=== PATIENT | male | born 1980 | race Asian ===

== ENCOUNTER 2019-01-21 14:39 | Emergency (ER) | payer OTHER, SELFPAY ==
[2019-01-21 14:45] VITALS: BP 142/93; PULSE 64; RESP 16; TEMP 36.6; O2SAT 100
--- NOTE | 2019-01-21 14:45 | DI.CT_ITS ---
SYMPTOM/DIAGNOSIS: RT SIDED ABD PAIN CT ABDOMEN AND PELVIS: CT scan of the abdomen and pelvis was performed following the uneventful administration of intravenous contrast material. No acute findings are seen in the lung bases. The liver is normal in size. There are several tiny hypodense lesions in the liver. They are too small for further characterization but likely reflect small cysts. No suspicious hepatic lesion is seen. The portal, superior mesenteric and portal veins are patent. The gallbladder is negative. There is no biliary ductal dilatation. The pancreas is unremarkable as are the spleen and adrenal glands. There are bilateral striated nephrograms. No renal mass is present. No obstructive uropathy is appreciated. The urinary bladder is intact. The reproductive organs are unremarkable. The aorta is of normal caliber. No significant abdominal or pelvic adenopathy, ascites or pneumoperitoneum is seen. The bowel shows no evidence of obstruction or inflammation. No findings to suggest an acute appendicitis are present. No acute osseous abnormality is identified. IMPRESSION: Bilateral striated nephrograms. Primary diagnostic concern is pyelonephritis. Other considerations include lymphoma, vasculitis or infarction. Please correlate clinically. Results were discussed with Charu De Leon of the Emergency Department on 01/23/19
--- NOTE | 2019-01-21 14:47 | ED.GENADUL_ITS ---
Discharge Plan Disposition Patient Disposition: HOME Condition: Stable Discharge Details Chief Complaint: Abd Prob Clinical Impression: Pancreatitis Primary Care Provider: Ad Escobar ED Provider: Jovanni Murray Home Meds and New Rx's Prescriptions: New ondansetron 4 mg tablet,disintegrating 4 mg PO Q8H PRN (Reason: nausea and vomiting) Qty: 20 RF: 0 No Action atorvastatin 10 mg Tablet RF: 0 Discharge Instructions Instructions: Pancreatitis (ED) Additional Instructions: your labs showed your lipase level was elevated consistent with pancreatitis. Your cat scan of your abdomen did not show any concerning findings you can take 1000mg tylenol and 600mg ibuprofen every 6 hours for pain as needed if you have severe worsening of pain or persistent vomit return to the emergency department Medical Decision Making 38 yo male who denies any chronic medical problems, has had a prior appendectomy, comes in with worsening right sided abdominal pain. Denies vomit, fevers, chills, chest pain, sob. He localizes the pain to the right side of his abdomen and does have ruq pain with guarding and positive deluna's sign on my exam. Will obtain labs and imaging to further evaluate for potential causes such as pancreatitis, cholecystitis and sbo among other pathology pt's pain resolved with one dose of toradol. His labs show lipase of over 1000 otherwise no significant findings. Awaiting CT CT shows no significant findings. He has absolutely no pain even on palpation and is tolerating PO now. He feels comfortable with d/c given he is tolerating PO and pain is well controlled with just toradol and he doesn't want any strong pain prescriptions. Will d/c and have him f/u with his pcp this week, return if worsening Differential Diagnosis cholecystitis, pancreatitis, sbo Imaging Data Radiologic Study: Attestation: I personally reviewed and interpreted this imaging study as follows: Imaging: CT Scan Radiologist's impression: no acute findings Lab Data Lab results reviewed: Yes I reviewed the patient's lab results. HPI General Mode of arrival: ambulatory . Date/Time Provider Initiated Documentation: 01/21/19 14:39 . Limitations to Documentation: no limitations . Information obtained by: patient . History of Present Illness 38 year old M presents to the emergency department with the chief complaint of abdominal pain, described as severe, Quality is described as stabbing, and is localized to the abdomen. Patient reports no radiation. Patient started experiencing this day(s) (3) and it has been constant. No relieving factors improve symptom(s), No exacerbating factors reported . Patient did receive the following treatments prior to arrival, none Related Data Home Medications Medication Instructions Recorded Confirmed atorvastatin 01/21/19 ondansetron 4 mg PO Q8H PRN #20 tab 01/21/19 Previous Rx's Medication Instructions Recorded ondansetron 4 mg PO Q8H PRN #20 tab 01/21/19 Allergies Allergy/AdvReac Type Severity Reaction Status Date / Time mold Allergy Intermediate Verified 03/22/18 13:05 lactose Allergy Unverified 01/21/19 14:49 pollen extracts Allergy Verified 03/22/18 13:05 Review of Systems Review of Systems All systems reviewed & are unremarkable except as noted in HPI and below Constitutional Denies chills and Denies fever(s) Cardiovascular Denies chest pain and Denies dyspnea Respiratory Denies cough and Denies dyspnea Gastrointestinal Denies vomiting Integumentary/Breasts Denies rash PFSH Social History Smoking/Tobacco Use Status: Never Alcohol Intake: current Alcohol Intake frequency: a few times a month Drug use: Never Substance use type: does not use Exam Const General: no acute distress Orientation: alert HENMT Head: normal to inspection Ears: external ears normal General nose exam: external nose normal Mouth: moist mucous membranes Eyes General: appearance normal, both eyes and all related structures Neck Neck: normal visual inspection Resp Effort & Inspection: normal respiratory effort and able to speak in complete sentences Cardio Rate: regular rate GI Palpation: soft Skin General skin exam: no rashes or lesions noted Neuro General: alert and oriented x3 Extrem General: normal to inspection Psych Mental Status: mental status grossly normal
[2019-01-21] MEDS: Ketorolac 15 MG/ML VIAL IVP (14:50)
[2019-01-21] MEDS: Normal Saline 1,000 ML 1000 ML IV (14:50)
[2019-01-21 14:54] LABS: Abs Immature Grans 0.04 k/cumm (0.0-0.09); Absolute Basophil Count 0.03 k/cumm (0.0-0.2); Absolute Monocyte Count 0.87 k/cumm (0.11-0.7); Absolute Neutrophil Count 6.43 k/cumm (1.2-6.7); Basophils % 0.3; Eosinophils % 1.1; HCT 47.5 % (40.0-50.0); HGB 16.6 g/dL (13.5-17.5); Immature Grans % 0.4; Lymphocytes % 21.1; Mean Corp. HGB Concentration 34.9 g/dL (32.0-36.0); Mean Corpuscular Hemoglobin 31.6 pg (27.0-33.0); Mean Corpuscular Volume 90.3 fL (80-95); Monocytes % 9.2; Neutrophils % 67.9; Platelet Count 231 x1000/uL (130-400); RBC 5.26 m/cumm (4.50-6.00); RBC Distribution Width 12.5 % (11.8-14.1); White Blood Cell Count 9.47 k/cumm (4.4-10.8)
[2019-01-21 15:13] LABS: Bilirubin, Direct 0.19 mg/dL (0.00-0.20)
[2019-01-21 15:14] LABS: ALT 30 U/L (12-78); AST 15 U/L (15-37); Alkaline Phosphatase 64 U/L (46-116); Anion Gap 9.2 mmol/L (3-11); BUN 21 mg/dL (7-18); Bilirubin, Total 0.7 mg/dL (0.2-1.0); CO2 27.8 mmol/L (21.0-32.0); CREATININE 1.26 mg/dL (0.70-1.30); Calcium 9.3 mg/dL (8.5-10.1); Chloride 104 mmol/L (98-107); Glucose 81 mg/dL (70-100); Lipase 1101 U/L (73-393); Magnesium 2.3 mg/dL (1.8-2.4); Potassium 3.7 mmol/L (3.5-5.1); Sodium 141 mmol/L (136-145)
[2019-01-21] MEDS: Omnipaque 350 MG/ML 100 ML BTL IJ (15:18)
[2019-01-21] MEDS: Normal Saline Flush 10 ML SYR IVP (15:19)
[2019-01-21 15:46] LABS: ETHANOL BLOOD < 3.0 mg/dL (<3)
[2019-01-21 15:57] LABS: Triglyceride 91 mg/dL (30-150)
--- NOTE | 2019-01-21 16:17 | DI.VRAD_ITS ---
EXAM: CT Abdomen and Pelvis With Contrast EXAM DATE/TIME: 01/21/2019 2:46 PM CLINICAL HISTORY: 38 years old, male; Other: RT abdominal pain; Prior surgery; Surgery type: Appendectomy TECHNIQUE: Imaging protocol: Axial computed tomography images of the abdomen and pelvis with intravenous contrast. Coronal and sagittal reformatted images were created and reviewed. COMPARISON: No relevant prior studies available. FINDINGS: Lungs: Fissuring no atelectasis at the lung bases. Liver: Small hypodensity in the liver too small to completely characterize but statistically usually represents a benign cyst or hemangioma. Gallbladder and bile ducts: Normal. No calcified stones. No ductal dilation. Pancreas: Normal. No ductal dilation. Spleen: Normal. No splenomegaly. Adrenals: Normal. No mass. Kidneys and ureters: Normal. No hydronephrosis. Stomach and bowel: Stomach shows no abnormality. There is no dilatation of small bowel. There is at least one diverticulum in the transverse colon. There is no inflammation around the colon. Appendix: Status post appendectomy Intraperitoneal space: Normal. No free air. No significant fluid collection. Vasculature: Normal. No abdominal aortic aneurysm. Lymph nodes: Normal. No enlarged lymph nodes. Bladder: Unremarkable as visualized. Reproductive: Unremarkable as visualized. Bones/joints: There mild degenerative changes in lower lumbar spine. Soft tissues: Unremarkable. IMPRESSION: No etiology of the patient's pain is demonstrated. Dictated and Authenticated by: Jovanni Alanis MD. Ordering:CHRISTIANO Baig MD
[2019-01-21 16:41] VITALS: BP 124/86; PULSE 80; RESP 15; TEMP 37.1; O2SAT 100
--- NOTE | 2019-01-21 16:44 | NUR.NOTE ---
Nursing Note: Referral faxed to PCP for follow up. Arianna Swartz.
--- NOTE | 2019-01-23 19:42 | W.ED.FU ---
I called and left a message at patient's house as radiologist today noted stranding around kidneys. HAd no findings on hx to suggest pyelo, asked pt to call back so I can discuss these findings.
--- NOTE | 2019-01-23 21:42 | W.ED.FU ---
pt called back and denies any fevers, or dysuria or symptoms of pyelo and is feeling better, do not feel he needs abx. I did advise he needs to see his pcp and make him aware of the stranding for further testing. HE understood these insturctions
== END 2019-01-21 16:41 | disposition home or self-care (01) ==
PROVIDERS: Emergency Provider Emergency Medicine; PCP Family Medicine
DX: K85.90 Acute pancreatitis without necrosis or infection, unspecified (principal); Z90.89 Acquired absence of other organs
CPT/HCPCS: 80053; 83690; 96361; 96374; 99285; 74177; 80320; 82248; 83735; 84478; 85025; 99284; J1885; J3490

== ENCOUNTER 2019-12-08 09:00 | Outpatient (CLI) | payer OTHER, SELFPAY ==
[2019-12-09 02:24] LABS: COVID-19 RT-PCR UVMMC Result Negative (Negative)
== END 2019-12-08 09:20 ==
PROVIDERS: PCP Family Medicine; Visit Provider Family Medicine
DX: Z11.59 Encounter for screening for other viral diseases (principal)
CPT/HCPCS: U0003

== ENCOUNTER 2020-03-06 16:06 | Outpatient (REF) | payer OTHER, SELFPAY ==
[2020-03-06 15:44] LABS: BUN 14 mg/dL (7-18); CREATININE 0.68 mg/dL (0.70-1.30); Calcium 8.7 mg/dL (8.5-10.1); Chloride 105 mmol/L (98-107); Glucose 104 mg/dL (74-106); Potassium 4.1 mmol/L (3.5-5.1); Sodium 139 mmol/L (136-145)
== END 2020-03-06 16:26 ==
LOC: NCHCN 16:06
PROVIDERS: PCP Family Medicine; Visit Provider Family Medicine
DX: R93.429 Abnormal radiologic findings on diagnostic imaging of unspecified kidney (principal)
CPT/HCPCS: 80048; 85652

== ENCOUNTER 2021-03-12 14:45 | Outpatient (REF) | payer MEDICAID, SELFPAY ==
[2021-03-12 15:43] LABS: CREATININE 0.6 mg/dL (0.70-1.30)
[2021-03-12 15:48] LABS: Hemoglobin A1C 5.5 % (<5.7)
[2021-03-13 09:39] LABS: Hepatitis C Ab w Rflx HCV PCR Negative (Negative)
== END 2021-03-12 14:46 | disposition home or self-care (01) ==
LOC: NCHCN 14:45
PROVIDERS: PCP Family Medicine; Visit Provider Family Medicine
DX: R93.429 Abnormal radiologic findings on diagnostic imaging of unspecified kidney (principal); Z00.00 Encounter for general adult medical examination without abnormal findings
CPT/HCPCS: 86803; 82565; 83036

== ENCOUNTER 2022-04-21 14:06 | Outpatient (REF) | payer MEDICAID, SELFPAY ==
[2022-04-21 17:36] LABS: Calculated LDL 93 mg/dL (<100); Cholesterol 172 mg/dL (<200); HDL Cholesterol 58 mg/dL (40-60); Triglyceride 107 mg/dL (<150)
== END 2022-04-21 14:07 | disposition home or self-care (01) ==
LOC: NCHCN 14:06
PROVIDERS: PCP Family Medicine; Visit Provider Family Medicine
DX: E78.5 Hyperlipidemia, unspecified (principal)
CPT/HCPCS: 80061

== ENCOUNTER 2024-07-24 15:59 | Outpatient (REF) | payer OTHER, SELFPAY ==
[2024-07-24 16:50] LABS: Anion Gap 8.4 mmol/L (3-11); BUN 10 mg/dL (7-18); CO2 28.6 mmol/L (21.0-32.0); CREATININE 0.7 mg/dL (0.70-1.30); Calcium 9.7 mg/dL (8.5-10.1); Calculated LDL 121 mg/dL (<100); Chloride 105 mmol/L (98-107); Cholesterol 215 mg/dL (<200); Estimated GFR 117.25 (mL/min/1.73m2); Glucose 93 mg/dL (74-106); HDL Cholesterol 69 mg/dL (40-60); Potassium 4.2 mmol/L (3.5-5.1); Sodium 142 mmol/L (136-145); Triglyceride 125 mg/dL (<150)
== END 2024-07-24 16:00 | disposition home or self-care (01) ==
LOC: NCHCN 15:59
PROVIDERS: PCP Family Medicine; Visit Provider Student in an Organized Health Care Education/Training Program
DX: E78.5 Hyperlipidemia, unspecified (principal); Z13.1 Encounter for screening for diabetes mellitus
CPT/HCPCS: 80048; 80061